=== PATIENT | female | born 1955 | race Caucasian/White ===

== ENCOUNTER 2016-10-28 05:26 | Day surgery (SDC) | payer BC ==
[~2016-10-28] VITALS: Ht 167.6 cm; Wt 73.4 kg
[~2016-10-28 05:26] MED LIST: DAILY VITE1 EAC1 PO; FISH OIL 1,0001 EAC7 PO; IMITREX50 MG PO; LO-DOSE ASPIRIN81 M2 PO
[2016-10-28 06:18] VITALS: BP 141/94
[2016-10-28 13:15] VITALS: BP 121/62
[2016-10-28 16:00] VITALS: BP 105/51
[2016-10-28 20:19] VITALS: BP 98/51
[2016-10-28 23:43] VITALS: BP 113/55
[2016-10-29 04:00] VITALS: BP 108/66
[2016-10-29 08:00] VITALS: BP 115/58
[2016-10-29 08:02] LABS: ANION GAP 6 MEQ/L (2-14); CHLORIDE 104 MEQ/L (99-109); GFR ESTIMATE (CALCULATED) > 59 mL/min/; GLUCOSE 84 mg/dL (70-99); SAMPLE HEMOLYSIS CHECK 0; SAMPLE ICTERIC CHECK 0; SAMPLE LIPEMIA CHECK 0; SODIUM 139 MEQ/L (136-147); UREA NITROGEN (BUN) 16 mg/dL (9-23)
[2016-10-29 08:07] LABS: EOSINOPHIL (%) 0.7 % (0-5); EOSINOPHIL COUNT 0.1 K/uL (0-0.3); HEMATOCRIT 31.4 % (36.0-46.0); IMMATURE GRANULOCYTE (%) 0.1 % (0.0-0.7); LYMPHOCYTE COUNT 1.7 K/uL (1.0-2.8); MCHC 32.8 G/DL (30.0-36.0); MCV 88.5 FL (83-99); MEAN PLAT.VOLUME 10.7 uM^3 (9.5-12.4); MONOCYTE (%) 7.4 % (3-12); MONOCYTE COUNT 0.6 K/uL (0-0.8); NEUTROPHIL COUNT 5.2 K/uL (1.8-6.4); PLATELET COUNT 215 K/uL (156-360); RBC DIS.WIDTH-CV 13.3 % (11.8-14.6); RBC DIS.WIDTH-SD 43.5 % (39-53); RED BLOOD COUNT 3.55 M/uL (3.80-5.20); WHITE BLOOD COUNT 7.5 K/uL (4.1-10.2)
[2016-10-29] MEDS ORDERED: PERCOCET 5/31 TABLET PO (15:17)
[2016-10-29] MEDS ORDERED: MOTRIN800 MG PO (15:17)
== END 2016-10-29 16:33 | disposition home or self-care (01) ==
LOC: SDC 05:26 → 2SOUTH 10:15 → 2EASTP 10:15 → 2SOUTH 10:15 → 2EASTP 13:10 → SDC 13:27 → 2EASTP 10-29 16:33
PROVIDERS: Obstetrics & Gynecology
DX: N81.2 Incomplete uterovaginal prolapse (principal); N39.3 Stress incontinence (female) (male); N81.6 Rectocele
CPT/HCPCS: 80048; 85025; 88302; 88307; C1726; G0378; J0131; J0330; J0690; J1100; J1885; J2250; J2270; J2405; J2710; J2765; J3010; J7120